=== PATIENT | female | born 1990 | race Caucasian/White ===

== ENCOUNTER 2017-06-22 22:41 | Emergency (ER) | payer OTHER ==
[2017-06-23 01:10] LABS: BASOPHIL % 0.6 % (0-2); PLATELET COUNT 252 x10^3mcL (130-400)
[2017-06-23 01:12] LABS: UA SPECIFIC GRAVITY 1.015 (1.005-1.035); microscopic required? YES; urine erythrocyte 1+ (NEGATIVE)
[2017-06-23 01:13] LABS: RED CELL DISTRIBUTION WIDTH 16.5 % (11.5-14.5)
[2017-06-23 04:11] VITALS: BP 122/79
== END 2017-06-23 04:11 | disposition left against medical advice (07) ==
LOC: ED 22:41
PROVIDERS: Emergency Medicine Emergency Medical Services
DX: O20.0 Threatened abortion (principal); Z3A.01 Less than 8 weeks gestation of pregnancy
CPT/HCPCS: 36415; Q0092

== ENCOUNTER 2017-10-08 13:33 | Emergency (ER) | payer OTHER ==
[~2017-10-08] VITALS: Ht 162.6 cm; Wt 54.0 kg
[2017-10-08 13:53] VITALS: Ht 162.6 cm; Wt 54.0 kg
[2017-10-08 19:10] LABS: UA SPECIFIC GRAVITY 1.025 (1.005-1.035); microscopic required? YES; urine erythrocyte NEGATIVE (NEGATIVE)
[2017-10-08 19:34] VITALS: BP 115/59
== END 2017-10-08 19:34 | disposition home or self-care (01) ==
LOC: ED 13:33
PROVIDERS: Emergency Medicine
DX: O26.92 Pregnancy related conditions, unspecified, second trimester (principal); Z3A.00 Weeks of gestation of pregnancy not specified

== ENCOUNTER 2018-10-13 14:43 | Emergency (ER) | payer SELFPAY ==
[~2018-10-13] VITALS: Ht 154.9 cm; Wt 52.4 kg
[2018-10-13 15:25] VITALS: Ht 154.9 cm; Wt 52.4 kg
[2018-10-13 19:46] VITALS: BP 128/77
== END 2018-10-13 19:46 | disposition home or self-care (01) ==
LOC: ED 14:43
DX: R51 Headache (principal); R11.0 Nausea; R07.89 Other chest pain; R20.0 Anesthesia of skin
CPT/HCPCS: J1885; J2765; J7030

== ENCOUNTER 2019-03-30 06:17 | Emergency (ER) | payer OTHER ==
[~2019-03-30] VITALS: Ht 154.9 cm; Wt 51.8 kg
[2019-03-30 06:24] VITALS: Ht 154.9 cm; Wt 51.8 kg
[2019-03-30 07:04] LABS: BASOPHIL % 0.8 % (0-2); PLATELET COUNT 205 x10^3mcL (130-400)
[2019-03-30 07:05] LABS: RED CELL DISTRIBUTION WIDTH 16.2 % (11.5-14.5)
[2019-03-30 07:18] LABS: CALCIUM 9.7 mg/dL (8.5-10.1); CARBON DIOXIDE 23.6 mmol/L (21-32); CHLORIDE SERUM 103 mmol/L (98-107); CREATININE SERUM 0.4 mg/dL (0.6-1.0); GFR1 > 60 mL/min; GLUCOSE SERUM 112 mg/dL (74-106); POTASSIUM SERUM 3.7 mmol/L (3.5-5.1); SODIUM SERUM 137 mmol/L (136-145)
[2019-03-30 07:22] LABS: ALBUMIN 3.5 g/dL (3.4-5.0); ALKALINE PHOSPHATASE 60 U/L (46-116); ALT/SGPT 15 U/L (14-59); AST/SGOT 8 U/L (15-37); BILIRUBIN TOTAL 0.63 mg/dL (0.20-1.00); TOTAL PROTEIN, SERUM 7.7 g/dL (6.4-8.2)
[2019-03-30 08:24] VITALS: BP 136/80
== END 2019-03-30 08:24 | disposition home or self-care (01) ==
LOC: ED 06:17
PROVIDERS: Emergency Medicine
DX: O9A.211 Injury, poisoning and certain other consequences of external causes complicating pregnancy, first trimester (principal); O20.0 Threatened abortion; S30.1XXA Contusion of abdominal wall, initial encounter; Z3A.11 11 weeks gestation of pregnancy; W01.0XXA Fall on same level from slipping, tripping and stumbling without subsequent striking against object, initial encounter; Y93.89 Activity, other specified; Y92.89 Other specified places as the place of occurrence of the external cause; Y99.8 Other external cause status
CPT/HCPCS: 36415